=== PATIENT | female | born 1930 | race Caucasian/White ===

== ENCOUNTER 2017-05-07 18:55 | Emergency (ER) | payer OTHER ==
[2017-05-07 20:01] LABS: BASOPHIL % 0.4 % (0-2); PLATELET COUNT 244 x10^3mcL (130-400)
[2017-05-07 20:15] LABS: CHLORIDE SERUM 101 mmol/L (98-107); CREATININE SERUM 1.2 mg/dL (0.6-1.0); GLUCOSE SERUM 92 mg/dL (74-106); POTASSIUM SERUM 4.2 mmol/L (3.5-5.1); SODIUM SERUM 132 mmol/L (136-145)
[2017-05-07 20:27] LABS: ALBUMIN 3.8 g/dL (3.4-5.0); ALKALINE PHOSPHATASE 53 U/L (46-116); ALT/SGPT 44 U/L (14-59); AMYLASE 98 U/L (25-115); AST/SGOT 34 U/L (15-37); BILIRUBIN TOTAL 0.6 mg/dL (0.20-1.00); LIPASE 180 IU/L (73-393); MAGNESIUM 2.3 mg/dL (1.8-2.4); TOTAL PROTEIN, SERUM 6.9 g/dL (6.4-8.2)
[2017-05-07 20:34] LABS: CALCIUM 9.1 mg/dL (8.5-10.1); CHOLESTEROL 125 mg/dL (<200); HDL CHOLESTEROL 78 mg/dL (40-60); T4(THYROXINE) 1.9 ug/dL (4.7-13.3)
[2017-05-07 22:03] LABS: UA SPECIFIC GRAVITY <=1.005 (1.005-1.035); microscopic required? YES; urine erythrocyte TRACE (NEGATIVE)
[2017-05-07 22:13] LABS: AMPHETAMINE QUAL UR NONE DETECTED (NEG <=1000)
[2017-05-07 22:14] VITALS: BP 165/82
== END 2017-05-07 22:14 | disposition left against medical advice (07) ==
LOC: ED 18:55
PROVIDERS: Emergency Medicine
DX: S00.12XA Contusion of left eyelid and periocular area, initial encounter (principal); S00.83XA Contusion of other part of head, initial encounter; S00.03XA Contusion of scalp, initial encounter; S09.90XA Unspecified injury of head, initial encounter; D64.9 Anemia, unspecified; I12.9 Hypertensive chronic kidney disease with stage 1 through stage 4 chronic kidney disease, or unspecified chronic kidney disease; N18.3 Chronic kidney disease, stage 3 (moderate); E78.00 Pure hypercholesterolemia, unspecified; Z95.0 Presence of cardiac pacemaker
CPT/HCPCS: 82962; 83880; J7030; J7040; Q0092